=== PATIENT | male | born 2000 | race Caucasian/White ===

== ENCOUNTER 2024-03-15 23:15 | Emergency (ER) | payer SELFPAY ==
[2024-03-15 23:23] VITALS: BP 125/70
--- NOTE | 2024-03-15 23:45 | ED.MUSCINJ ---
HPI-Injury
General
Chief Complaint: Fall
Source: patient
Exam Limitations: none
Time Seen by Provider: 03/15/24 23:45
Nursing documentation reviewed up to this point in time: agreed with
Travel History
Have you had any contact with someone who has COVID-19?: No
Do you have any symptoms of coronavirus? Fever > 100 degrees, chills, cough, shortness of breath, sore throat, loss of taste or smell, muscle aches, or headache?: No
History of Present Illness-Injury
Initial Injury comments:
23-year-old male states he was being stupid, drinking and messing around with his friends, was standing on a wall of a [employer] about 10 feet up when he fell striking the bottom of the [employer] step with his right lateral thigh and knee also his right
wrist. He denies hitting his head or any other injury. He has been able to be up and around and walking.
Past History
Past History
ED Past Medical History: None
ED Past Surgical History: None
Social History
Tobacco: Non-smoker (There is smoking in the household )
Alcohol: Occasional
Personal: Single
Living: with family
Employment: Employed (construction)
Review of Systems
Review of Systems
Allergies reviewed?: Yes
All Other Systems: ROS reviewed and negative except as documented in HPI and ROS
Respiratory: Denies trouble breathing
Cardiac: Denies chest pain
ABD/GI: Denies abdominal pain
Musculoskeletal: Reports other (pain right wrist, right knee, right thigh); Denies neck pain or back pain
Skin: Reports other (scrapes right leg)
Neurological: Reports no symptoms
Phy Exam
Physical Exam
Physical Exam:
GENERAL: No acute distress. A&Ox3.
CONSTITUTIONAL: Afebrile.
EYES: PERRL, conjunctivae normal
Neck: Supple
ENMT: moist mucus membranes, Pharynx nl
RESPIRATORY: Regular respirations, nonlabored, lungs clear.
CARDIOVASCULAR: Regular rate and rhythm, no murmurs, no rubs.
GI: Soft, nontender, normal BS
MUSCULOSKELETAL: No spinal bony tenderness. Right wrist with pain on the anterior surface where there is an ecchymotic area. Full range of motion of wrist. Distal neurovascular intact. Right thigh with superficial clean abrasions on the lateral
aspect, no significant bony tenderness. Mild swelling. Tender to palpate lateral aspect of right knee with mild abrasion. Full range of motion of hip and knee. Distal neurovascular intact. Moves with ease. Well perfused.
SKIN: Warm, dry, pink
PSYCH: Normal mood and affect. Well kept, interactive and appropriate
NEUROLOGIC: Awake, alert and oriented. No focal neurological deficits
Injury Course
Orders/Labs/Results
Orders:
Orders
03/15/24 23:40
Wrist, Right 3 Views [CR Wrist - Right Min 3 Views] Urgent
Comment:
Reason For Exam: fall
03/15/24 23:41
Femur, Right 2 View [CR Femur - Right Min 2 Vw] Urgent
Comment:
Reason For Exam: fall
03/15/24 23:44
Knee, Right 4 or More Views [CR Knee- Right 4 Or More View*] Urgent
Comment:
Reason For Exam: fall
MDM/Problems Addressed
Differential Diagnosis Includes:
Contusions, abrasions versus fractures/sprains.
MDM/Problems Addressed:
23-year-old male states he was being stupid, drinking and messing around with his friends, was standing on a wall of a [employer] about 10 feet up when he fell striking the bottom of the [employer] step with his right lateral thigh and knee also his right
wrist. He denies hitting his head or any other injury. He has been able to be up and around and walking.
Patient ambulates well, he has full range of motion of his right wrist, his right hip and knee, with some pain, I doubt there are any fractures. Most likely soft tissue injuries: Contusions, abrasions.
12:35 AM
X-ray of right knee initially read by this examiner: No bony or other abnormality noted
X-ray right femur initially read by this examiner: No bony or other abnormality noted.
X-ray right wrist read by this examiner: No acute abnormality noted.
Pt ambulated out with normal gait at discharge
*Critical Care Note
Total Time (30-74mins, 75-104mins- exclusive of procedures): Not Applicable
ED Attending Note
-
Portions of this chart may have been created with voice recognition software.� Occasional wrong word or��sound alike� substitutions may have occurred due to the inherent limitations of voice recognition software.
Discharge Plan
Departure
Patient Disposition: Home (Routine Discharge)
Date of Disposition: 03/16/24
Time of Disposition: 00:39
Patient with high blood pressure during this ER visit?: No
Condition: Good
Discharge Problem:
Contusion of right thigh, Contusion of right wrist, Contusion of right knee
Instructions: Contusion (DC), Skin Abrasions (DC)
Prescriptions:
No Action
prednisolone sodium phosphate [Orapred ODT] 15 MG tablet,disintegrating
15 mg PO DAILY Qty: 3 0RF
Referrals:
NONE,* [Family Provider] -
Activity Restrictions/Additional Instructions:
As we discussed, your x-rays show nothing broken.
Ibuprofen 600 mg with food every 6 hours as needed for pain
Interventions
Interventions:
*Risk Screen - Suicide Last Done: 03/15/24 23:23
*General Assessment Last Done: 03/16/24 01:00
*Neglect/Abuse Screening Last Done: 03/15/24 23:23
ED- Fall Risk Assessment Last Done: 03/15/24 23:45
*ED COVID-19 Vaccine History Last Done: 03/16/24 01:00
*Nursing Disposition Last Done: 03/16/24 01:00
ED-Musculoskeletal Assessment Last Done: 03/15/24 23:45
ED- Neurological Assessment Last Done: 03/15/24 23:45
ED-Skin Assessment Last Done: 03/15/24 23:45
Discharge Date and Time
Discharge Date/Time: 03/16/24 01:04
Print Language: MAORI
== END 2024-03-16 01:04 | disposition home or self-care (01) ==
LOC: EMR 23:15
PROVIDERS: EMERGENCY PHYSICIAN Emergency Medicine
DX: S70.11XA Contusion of right thigh, initial encounter (principal); S60.211A Contusion of right wrist, initial encounter; S80.01XA Contusion of right knee, initial encounter; S70.311A Abrasion, right thigh, initial encounter; S80.211A Abrasion, right knee, initial encounter; F10.90 Alcohol use, unspecified, uncomplicated; W17.89XA Other fall from one level to another, initial encounter
CPT/HCPCS: 99284; 73110; 73552; 73564